=== PATIENT | female | born 1980 | race American Indian/Alaskan Native ===

== ENCOUNTER 2017-12-26 21:14 | Emergency (ER) | payer BC, MEDICAID ==
[2017-12-26 21:37] VITALS: RESP 18; TEMP 98.3; O2SAT 97; BMI 36.0
--- NOTE | 2017-12-26 21:50 | ED PDOC ---
Arrival/HPI - General Chief Complaint: Abnormal Skin Integrity Time Seen by Provider: 12/26/17 21:49 Historian: Patient - History of Present Illness Narrative History of Present Illness (Text): 12/26/17 21:50 This 37 yo female presents to this ED c/o painful scalp x 10 days. Pain has worsen today. Past Medical History - Cardiac Hx Cardiac Disorders: No - Pulmonary Hx Respiratory Disorders: Yes Hx Asthma: Yes - Neurological Hx Neurological Disorder: No - HEENT Hx HEENT Disorder: No - Renal Hx Renal Disorder: No - Endocrine/Metabolic Hx Endocrine Disorders: No - Hematological/Oncological Hx Blood Disorders: No - Integumentary Hx Dermatological Disorder: No - Musculoskeletal/Rheumatological Hx Musculoskeletal Disorders: No - Gastrointestinal Hx Gastrointestinal Disorders: No - Genitourinary/Gynecological Hx Genitourinary Disorders: No - Psychiatric Hx Psychophysiologic Disorder: No Hx Substance Use: No - Surgical History Hx Section: Yes Hx Tubal Ligation: Yes - Anesthesia Hx Anesthesia: Yes Hx Anesthesia Reactions: No Hx Malignant Hyperthermia: No Family/Social History Smoking Status: Former Smoker Hx Alcohol Use: Yes Frequency of alcohol use: Socially Hx Substance Use: No Allergies/Home Meds Allergies/Adverse Reactions: Allergies No Known Allergies Allergy (Verified 01/11/16 10:37) Physical Exam Vital Signs Temp Pulse Resp BP Pulse Ox 12/26/17 21:28 98.3 F 82 18 137/86 97 Medical Decision Making ED Course and Treatment: 12/26/17 22:32 Re-evaluation. Patient feels better. Discussed results and plan with patient who expresses understanding. All questions answered and there is agreement with the plan to discharge home with instructions. Patient stable for discharge. Return if symptoms persist or worsen. Dr. Aggarwal ED attending came to examine patient. He agreed with plan. Re-evaluation Time: 22:32 Reassessment Condition: Re-examined, Improved - Medication Orders Current Medication Orders: Discontinued Medications Cephalexin Monohydrate (Keflex) 500 mg PO STAT STA PRN Reason: Protocol Stop: 12/26/17 22:10 Ketorolac Tromethamine (Toradol) 15 mg IM STAT STA Stop: 12/26/17 22:09 Prednisone (Prednisone Tab) 40 mg PO STAT STA Stop: 12/26/17 22:09 Trimethoprim/Sulfamethoxazole (Bactrim Ds Tab) 1 tab PO STAT STA PRN Reason: Protocol Stop: 12/26/17 22:09 Disposition/Present on Arrival - Present on Arrival Any Indicators Present on Arrival: No History of DVT/PE: No History of Uncontrolled Diabetes: No Urinary Catheter: No History of Decub. Ulcer: No History Surgical Site Infection Following: None - Disposition Have Diagnosis and Disposition been Completed?: Yes Diagnosis: Dermatitis, Scalp pain Disposition: HOME/ ROUTINE Disposition Time: 22:34 Patient Plan: Discharge Patient Problems: Current Active Problems Problem Status Onset Dermatitis Acute Scalp pain Acute Condition: GOOD Discharge Instructions (ExitCare): Dermatitis Additional Instructions: Call private doctor for follow up visit in 1-2 days. Take medication as instructed with food. Return to emergency if symptoms worsen. Call car wrecker for revaluation. Prescriptions: Cephalexin [Keflex] 500 mg PO QID #40 capsule predniSONE [predniSONE Tab] 40 mg PO DAILY #8 tab Sulfamethoxazole/Trimethoprim [Bactrim DS 800 mg-160 mg] 1 tab PO BID #20 tab Referrals: Daya Carvalho MD [Primary Care Provider] - Follow up with primary Serena Grayson MD [Staff Provider] - Follow up with primary Forms: [employer] (Italian), WORK NOTE
[2017-12-26] MEDS ORDERED: Tmp-Smz 800 mg-160 mg DS Tab PO STA (22:08)
[2017-12-26 23:24] VITALS: BP 156/98
[2017-12-26 23:25] VITALS: PULSE 90
== END 2017-12-26 23:25 | disposition home or self-care (01) ==
LOC: ED 21:14
DX: R51 Headache (principal); L30.9 Dermatitis, unspecified; Z87.891 Personal history of nicotine dependence
CPT/HCPCS: 81025; 96372; 99282; J1885

== ENCOUNTER 2018-09-16 08:26 | Emergency (ER) | payer BC ==
[2018-09-16 08:26] VITALS: BMI 36.0
[2018-09-16 08:57] VITALS: RESP 18
--- NOTE | 2018-09-16 09:38 | ED PDOC ---
Arrival/HPI - General Chief Complaint: Cough, Cold, Congestion Historian: Patient - History of Present Illness Narrative History of Present Illness (Text): 09/16/18 09:37 A 38 year old female, whose past medical history includes asthma, presents to the emergency department complaining of productive coughing 2-3 weeks. Patient reports also experiencing associated wheezing with coughing, runny nose and nasal congestion. Patient denies any chest pain, shortness of breath, night sweats, no leg pain or swelling, no pleurisy pain, no arm pain or swelling, or any other complaints at this time. Denies any recent travel. PMD: Dr. Carvalho Time/Duration: > month (2-3 weeks) Past Medical History - Provider Review Nursing Documentation Reviewed: Yes - Travel History Have you recently traveled outside [place] w/in the past 3 mons?: No - Reproductive Currently : No - Cardiac Hx Cardiac Disorders: No - Pulmonary Hx Respiratory Disorders: Yes Hx Asthma: Yes - Neurological Hx Neurological Disorder: No - HEENT Hx HEENT Disorder: No - Renal Hx Renal Disorder: No - Endocrine/Metabolic Hx Endocrine Disorders: No - Hematological/Oncological Hx Blood Disorders: No - Integumentary Hx Dermatological Disorder: No - Musculoskeletal/Rheumatological Hx Musculoskeletal Disorders: No - Gastrointestinal Hx Gastrointestinal Disorders: No - Genitourinary/Gynecological Hx Genitourinary Disorders: No - Psychiatric Hx Anxiety: Yes Hx Substance Use: No - Surgical History Hx Section: Yes Hx Tubal Ligation: Yes - Anesthesia Hx Anesthesia: Yes Hx Anesthesia Reactions: No Hx Malignant Hyperthermia: No Family/Social History - Physician Review Nursing Documentation Reviewed: Yes Family/Social History: No Known Family HX Smoking Status: Former Smoker Hx Alcohol Use: Yes Hx Substance Use: No Allergies/Home Meds Allergies/Adverse Reactions: Allergies No Known Allergies Allergy (Verified 09/16/18 08:57) Home Medications: Home Meds Medication Instructions Recorded Confirmed Anti-Anxiety Med 09/16/18 Review of Systems - Physician Review All systems were reviewed & negative as marked: Yes - Review of Systems Constitutional: absent: Fatigue, Night Sweats Eyes: absent: Vision Changes ENT: Rhinorrhea, Sinus Congestion. absent: Hearing Changes Respiratory: Cough (productive), Sputum, Wheezing. absent: SOB Cardiovascular: absent: Chest Pain Gastrointestinal: absent: Abdominal Pain, Diarrhea, Nausea, Vomiting Musculoskeletal: absent: Arthralgias, Back Pain Skin: absent: Rash, Pruritis Neurological: absent: Headache, Dizziness, Focal Weakness Psychiatric: absent: Anxiety, Depression, Suicidal Ideation Physical Exam Vital Signs Reviewed: Yes Vital Signs Temp Pulse Resp BP Pulse Ox 09/16/18 09:17 151/92 H 09/16/18 08:54 98.1 F 72 18 93/76 L 99 Temperature: Afebrile Pulse: Regular Respiratory Rate: Normal Appearance: Positive for: Well-Appearing, Non-Toxic, Comfortable Pain Distress: None Mental Status: Positive for: Alert and Oriented X 3 - Systems Exam Head: Present: Atraumatic, Normocephalic Pupils: Present: PERRL Extroacular Muscles: Present: EOMI Conjunctiva: Present: Normal Ears: Present: NORMAL TM, Normal Canal. No: Erythema Mouth: Present: Moist Mucous Membranes Pharnyx: No: ERYTHEMA, EXUDATE, TONSILS ENLARGED Nose (External): Present: Atraumatic. No: Abrasion, Contusion, Laceration Nose (Internal): Present: Normal Inspection, No Active Bleeding, Rhinorrhea. No: Septal Deviation, Septal Hematoma, Epistaxis Neck: Present: Normal Range of Motion, Trachea Midline. No: MIDLINE TENDERNESS, Paraspinal Tenderness, Lymphadenopathy Respiratory/Chest: Present: Clear to Auscultation, Good Air Exchange. No: Respiratory Distress, Accessory Muscle Use, Wheezes, Decreased Breath Sounds, Rales, Retracting, Rhonchi, Tachypneic, Tender to Palpation Cardiovascular: Present: Regular Rate and Rhythm, Normal S1, S2. No: Murmurs Abdomen: No: Tenderness, Distention, Peritoneal Signs Back: Present: Normal Inspection Upper Extremity: Present: Normal Inspection. No: Cyanosis, Edema Lower Extremity: Present: Normal Inspection. No: Edema Neurological: Present: GCS=15, CN II-XII Intact, Speech Normal Skin: Present: Warm, Dry, Normal Color. No: Rashes Psychiatric: Present: Alert, Oriented x 3, Normal Insight, Normal Concentration Medical Decision Making ED Course and Treatment: 09/16/18 09:38 Impression: 38 year old female with productive cough and associated wheezing. Plan: -- Chest X-ray -- POC Urine Test -- Reassess and disposition Progress Notes: 09/16/18 10:15 -Urine hcg is negative -Chest xray show Increased and coarsened nodular appearing interstitial markings with scattered peribronchial cuffing changes. Findings could represent sequela of reactive/inflammatory airway disease or viral illness.. -Pt. feels well, will discharge home, elevated BP noted and advised to follow up with the pmd -Discharge home with zithromax, prednisone, albuterol MDI, bromfed dm, stay hydrated, follow up with your own pmd within 2 days and bp repeat/follow up as well in 2 days, return to the ER for any new or worsening signs or symptoms. - RAD Interpretation Radiology Orders: Date of service: 09/16/2018 HISTORY: cough x 2-3 weeks COMPARISON: No prior study available for comparison. TECHNIQUE: Chest PA and lateral FINDINGS: LUNGS: Increased and coarsened nodular appearing interstitial markings with scattered peribronchial cuffing changes. Findings could represent sequela of reactive/inflammatory airway disease or viral illness.. PLEURA: No significant pleural effusion identified. No pneumothorax apparent. CARDIOVASCULAR: No aortic atherosclerotic calcification present. Normal cardiac size. No pulmonary vascular congestion. OSSEOUS STRUCTURES: No significant abnormalities. VISUALIZED UPPER ABDOMEN: Normal. OTHER FINDINGS: None. IMPRESSION: Increased and coarsened nodular appearing interstitial markings with scattered peribronchial cuffing changes. Findings could represent sequela of reactive/inflammatory airway disease or viral illness.. Ice Skater: Radiologist - PA / INDUSTRIAL ENGINEERING INTERN / Resident Statement MD/DO has reviewed & agrees with the documentation as recorded. - Scribe Statement The provider has reviewed the documentation as recorded by the Maira Varma Provider Scribe Attestation: All medical record entries made by the Maira were at my direction and personally dictated by me. I have reviewed the chart and agree that the record accurately reflects my personal performance of the history, physical exam, medical decision making, and the department course for this patient. I have also personally directed, reviewed, and agree with the discharge instructions and disposition. Disposition/Present on Arrival - Present on Arrival Any Indicators Present on Arrival: No History of DVT/PE: No History of Uncontrolled Diabetes: No Urinary Catheter: No History of Decub. Ulcer: No History Surgical Site Infection Following: None - Disposition Have Diagnosis and Disposition been Completed?: Yes Diagnosis: Bronchitis, URI (upper respiratory infection), HTN (hypertension) Disposition: HOME/ ROUTINE Disposition Time: 10:16 Patient Plan: Discharge Patient Problems: Current Active Problems Problem Status Onset Bronchitis Acute HTN (hypertension) Acute URI (upper respiratory infection) Acute Condition: GOOD Additional Instructions: -Discharge home with zithromax, prednisone, albuterol MDI, bromfed dm, stay hydrated, follow up with your own pmd within 2 days and bp repeat/follow up as well in 2 days, return to the ER for any new or worsening signs or symptoms. Prescriptions: Albuterol Sulfate [Proair Respiclick] 2 puff IH QID PRN #1 [email or web address] PRN Reason: Other Azithromycin [Zithromax] 250 mg PO DAILY #6 tab Brompheniramine/Pseudoephed/Dm [Bromfed Dm Cough 118 ml] 10 ml PO QID PRN #250 ml PRN Reason: Other Prednisone 50 mg PO DAILY #5 tab Referrals: Daya Carvalho MD [Primary Care Provider] - Follow up with primary Forms: [employer] ([place]), WORK NOTE
--- NOTE | 2018-09-16 10:10 | RAD ---
Date of service: 09/16/2018 HISTORY: cough x 2-3 weeks COMPARISON: No prior study available for comparison. TECHNIQUE: Chest PA and lateral FINDINGS: LUNGS: Increased and coarsened nodular appearing interstitial markings with scattered peribronchial cuffing changes. Findings could represent sequela of reactive/inflammatory airway disease or viral illness.. PLEURA: No significant pleural effusion identified. No pneumothorax apparent. CARDIOVASCULAR: No aortic atherosclerotic calcification present. Normal cardiac size. No pulmonary vascular congestion. OSSEOUS STRUCTURES: No significant abnormalities. VISUALIZED UPPER ABDOMEN: Normal. OTHER FINDINGS: None. IMPRESSION: Increased and coarsened nodular appearing interstitial markings with scattered peribronchial cuffing changes. Findings could represent sequela of reactive/inflammatory airway disease or viral illness..
[2018-09-16 10:31] VITALS: BP 142/100; PULSE 75; TEMP 98.3; O2SAT 98
== END 2018-09-16 10:31 | disposition home or self-care (01) ==
LOC: ED 08:26
DX: J06.9 Acute upper respiratory infection, unspecified (principal); J40 Bronchitis, not specified as acute or chronic; I10 Essential (primary) hypertension; Z87.891 Personal history of nicotine dependence